=== PATIENT | male | born 1950 ===

== ENCOUNTER 2016-08-22 06:56 | Day surgery (SDC) | payer BC ==
[2016-08-12 13:36] VITALS: BMI 25.3
[2016-08-22] MEDS ORDERED: Lidocaine 2% Inj (20ml) ONE (07:33)
[2016-08-22] MEDS ORDERED: Iodixanol 320 MG/ML 200 ML BOTTLE IV ONE (07:34)
[2016-08-22 07:35] LABS: ADD MANUAL DIFF? NO
[2016-08-22 07:42] LABS: BASO # 0.02 K/mm3 (0.0-2.0); BASO % 0.5 % (0.0-3.0); EOS # 0.1 (0.0-0.7); EOS % 2.4 % (1.5-5.0); GRAN # 2.44 (1.4-6.5); GRAN % 59.3 % (50.0-68.0); HEMATOCRIT 42.5 % (42.0-52.0); MEAN CELL VOLUME 98.4 fL (80.0-105.0); MEAN CORPUSCULAR HEMOGLOBIN 35.2 pg (25.0-35.0); MEAN CORPUSCULAR HGB CONC 35.8 g/dl (31.0-37.0); MEAN PLATELET VOLUME 10.5 fl (7.0-11.0); MONO # 0.6 (0.1-0.6); MONO % 13.8 % (1.0-6.0); PLATELET COUNT 146 10^3/uL (120.0-450.0); RED CELL DISTRIBUTION WIDTH 12.2 % (11.5-14.5); WHITE BLOOD COUNT 4.1 10^3/ul (4.5-11.0)
[2016-08-22 07:46] LABS: BLOOD UREA NITROGEN 14 mg/dL (7-21); CALCIUM 9.6 mg/dL (8.4-10.5); CARBON DIOXIDE 27 mmol/L (21-33); CHLORIDE 98 mmol/L (95-110); GFR AFRICAN-AMERICAN > 60; GLUCOSE,RANDOM 181 mg/dL (70-110); POTASSIUM 3.8 mmol/L (3.6-5.0); SODIUM 137 mmol/L (132-148)
[2016-08-22 07:49] LABS: INR 0.98 (0.93-1.08)
[2016-08-22] MEDS ORDERED: Midazolam 2 MG/2 ML VIAL ONE ×2 (08:40→09:06)
[2016-08-22] MEDS ORDERED: Iodixanol 320 MG/ML 100 ML BOTTLE IV ONE (08:42)
[2016-08-22 09:29] VITALS: O2SAT 99
[2016-08-22] MEDS ORDERED: Sodium Chloride 0.9% 1,000 ML IV SCH (10:15)
--- NOTE | 2016-08-22 10:45 | CARDCATH ---
PROCEDURE DATE: 08/22/2016 HISTORY OF PRESENT ILLNESS: The patient is a 66-year-old male who presents with angina. His cardiac risk factors include hypertension, hypercholesterolemia and diabetes mellitus. Because of his abnormal stress test, cardiac catheterization was recommended. PROCEDURES: Left heart catheterization with coronary angiography, left ventriculogram followed by pe rcutaneous transluminal coronary angioplasty and stent of an right coronary artery with a drug-elutin g stent. The right femoral artery was cannulated with a 6-Telugu sheath. There were no complications. The findings on catheterization revealed a left main artery that was unremarkable. The LAD and diagonal vessels revealed mild intimal irregularities without critical lesions. The circumflex artery and obtuse marginal branches were free of significant disease. The RCA was a dominant vessel and revealed a 99% stenosis in the proximal portion. This was improved with IC nitroglycerin. However, repeat coronary angiography revealed recurrent spasm during the pro cedure. LV function revealed normal LV function with an EF 70%. The patient was started on intravenous Angiomax. Under fluoroscopic guide, the guiding catheter was placed in the ostium of the RCA. An 0.014 ATW wir e was used to cross the lesion. A 3.0 x 18 mm drug-eluting stent was placed and deployed at 16 atmospheres of pressure. Post-dilatat ion was performed with a 4.0 noncompliant balloon at 12 atmospheres of pressure. Repeat coronary ang iography revealed an excellent result with no residual stenosis and LISANDRA III flow. Angio-Seal was used to close the femoral artery site. The patient tolerated the procedure well. IN SUMMARY: The procedure was successful percutaneous transluminal coronary angioplasty and stent of an right coronary artery lesion with a drug-eluting stent. Cardiac catheterization reveals single vessel coronary artery disease of the right coronary artery wh ich was combined atherosclerosis and coronary spasm. Given these findings, the patient will need to remain on aspirin indefinitely and Plavix for at least 1 year and undergo a strict cardiac risk reduction program. Ten Miller MD cc: [facility] TT: 08/22/2016 10:44:38 fl
[2016-08-22 13:51] LABS: CHOLESTEROL 234 mg/dL (130-200)
--- NOTE | 2016-08-22 18:20 | CP.PCM.HP ---
History of Present Illness - History of Present Illness History of Present Illness: Internal Medicine H&P for Dr. Wyatt/Dr. Wang service CC: S/p cardiac cath due to angina with abnormal stress test HPI: This is a 57 yo M with PMH of HTN, HLD, DM, and Gout who presents s/p cardiac cath notable for 99% stenosis in Right RCA with residual spasm s/p IC nitroglycerin requiring placement of a drug-eluting stent. HPI and ROS somewhat limited as patient is poor historian; has poor insight into his conditions. Patient denies any preceding symptoms leading to this point, but as per documentation from Cardio, the patient presented to them with anginal symptoms, and stress testing was abnormal, so patient was scheduled for the cardiac cath today. At time of exam, patient is not complaining of any symptoms. He states pain in right groin is completely resolved. He denies vice -like pressure in the right groin/leg or sensation of lightheadedness/dizziness/ near-syncope. He admits to his history of HTN (diagnosed 1 year prior per patient) and hyperlipidemia (which he states he controls with fenofibrate and diet modification), but states that while he has been told he has Diabetes he does not believe it as he does not feel like he has diabetes (but states compliance with his Metformin). PMH: HTN, HLD, DM, Gout (1 attack prior, none since started on allopurinol) PSH: Denies FHx: Denies SHx: Denies tobacco/illicits/IVDA, admits to 2-3 glasses of alcohol (usually wine) per night, denies shakes or withdrawal sx when not drinking alcohol Works as transported for [employer] PMD: Dr. Patiño Present on Admission - Present on Admission Any Indicators Present on Admission: No History of DVT/PE: No Urinary Catheter: No Review of Systems - Constitutional Constitutional: absent: Chills, Fever, Weakness - EENT Eyes: absent: Blurred Vision, Change in Vision, Loss of Vision Ears: absent: Disequilibrium, Dizziness Nose/Mouth/Throat: absent: Sore Throat, Neck Pain - Cardiovascular Cardiovascular: absent: Chest Pain, Dyspnea, Irregular Heart Rhythm, Pain Radiating to Arm/Neck/Jaw, Lightheadedness, Palpitations, Syncope - Respiratory Respiratory: absent: Cough, Dyspnea, Hemoptysis, Dyspnea on Exertion - Gastrointestinal Gastrointestinal: absent: Abdominal Pain, Constipation, Diarrhea, Nausea, Vomiting - Genitourinary Genitourinary: absent: Difficulty Urinating, Dysuria, Flank Pain, Hematuria - Musculoskeletal Musculoskeletal: absent: Back Pain, Neck Pain, Numbness - Integumentary Integumentary: absent: Pruritus, Rash - Neurological Neurological: absent: Abnormal Gait, Disequilibrium, Dizziness, Numbness, Focal Weakness, Loss of Vision, Paresthesias, Syncope, Tingling, Tremor (generally or off of alcohol), Vertigo, Weakness - Psychiatric Psychiatric: absent: Anxiety - Endocrine Endocrine: absent: Fatigue, Palpitations Past Patient History - CARDIAC Hx Pacemaker: No - NEUROLOGICAL Hx Paralysis: No - HEMATOLOGICAL/ONCOLOGICAL Hx Blood Transfusions: No - MUSCULOSKELETAL/RHEUMATOLOGICAL Hx Musculoskeletal Disorders: No - PSYCHIATRIC Hx Emotional Abuse: No Hx Physical Abuse: No Hx Substance Use: No - SURGICAL HISTORY Hx Surgeries: Yes - ANESTHESIA Hx Anesthesia Reactions: No Hx Malignant Hyperthermia: No Meds Allergies/Adverse Reactions: Allergies Allergy/AdvReac Type Severity Reaction Status Date / Time No Known Allergies Allergy Verified 08/12/16 13:34 Physical Exam - Constitutional Appears: Well, Non-toxic, No Acute Distress - Head Exam Head Exam: ATRAUMATIC, NORMAL INSPECTION, NORMOCEPHALIC - Eye Exam Eye Exam: EOMI, Normal appearance. absent: Conjunctival injection, Scleral icterus Pupil Exam: absent: Irregular, Unequal - ENT Exam ENT Exam: Mucous Membranes Moist - Neck Exam Neck exam: Positive for: Full Rom. Negative for: Tenderness - Respiratory Exam Respiratory Exam: Clear to Auscultation Bilateral, NORMAL BREATHING PATTERN. absent: Accessory Muscle Use, Chest Wall Tenderness, Decreased Breath Sounds, Rales, Rhonchi, Wheezes - Cardiovascular Exam Cardiovascular Exam: REGULAR RHYTHM, RRR, +S1, +S2. absent: Bradycardia, Tachycardia, Irregular Rhythm, +S4 - GI/Abdominal Exam GI & Abdominal Exam: Normal Bowel Sounds, Soft. absent: Diminished Bowel Sounds , Hyperactive Bowel Sounds, Hypoactive Bowel Sounds, Tenderness - Rectal Exam Rectal Exam: Deferred - Extremities Exam Extremities exam: Positive for: normal capillary refill, pedal pulses present (+ 1 dorsalis pedis and radials bilaterally). Negative for: calf tenderness, pedal edema, tenderness Additional comments: Pressure bandaging over R groin canulation site, no surrounding edema/erythema/ tenderness to palpation, patient denies tenderness to palpation at site of bandaging, no active bleeding or oozing at bandaging site - Back Exam Back exam: absent: CVA tenderness (L), CVA tenderness (R) - Neurological Exam Neurological exam: Alert Additional comments: Awake and alert, following all commands appropriately, ROM in bilateral UE and LLE intact and appropriate, RLE ROM restricted 2/2 recent cath - Psychiatric Exam Psychiatric exam: Normal Affect, Normal Mood - Skin Skin Exam: Dry, Intact (except for canulation site as noted in extremities exam) , Normal Color, Warm Results - Vital Signs Recent Vital Signs: Last Vital Signs Temp 97.8 F 08/22/16 12:03 Pulse 73 08/22/16 12:03 Resp 19 08/22/16 12:03 BP 118/71 08/22/16 12:03 Pulse Ox 99 08/22/16 07:10 - Labs Result Diagrams: 08/22/16 07:15 08/22/16 07:15 Labs: Laboratory Results - last 24 hr 08/22/16 08/22/16 08/22/16 07:15 07:15 07:15 WBC 4.1 L RBC 4.32 Hgb 15.2 Hct 42.5 MCV 98.4 MCH 35.2 H MCHC 35.8 RDW 12.2 Plt Count 146 MPV 10.5 Gran % 59.3 Lymph % (Auto) 24.0 [place] % (Auto) 13.8 H Eos % (Auto) 2.4 Baso % (Auto) 0.5 Gran # 2.44 Lymph # 1.0 L [place] # 0.6 Eos # 0.1 Baso # 0.02 PT 10.6 INR 0.98 APTT 25.0 Sodium 137 Potassium 3.8 Chloride 98 Carbon Dioxide 27 Anion Gap 16 BUN 14 Creatinine 1.0 Est GFR ( Amer) > 60 Est GFR (Non-Af Amer) > 60 Random Glucose 181 H Hemoglobin A1c Calcium 9.6 Triglycerides Cholesterol LDL Cholesterol Direct HDL Cholesterol Blood Type Blood Type Confirm Antibody Screen BBK History Checked 08/22/16 08/22/16 08/22/16 07:15 07:30 07:30 WBC RBC Hgb Hct MCV MCH MCHC RDW Plt Count MPV Gran % Lymph % (Auto) [place] % (Auto) Eos % (Auto) Baso % (Auto) Gran # Lymph # [place] # Eos # Baso # PT INR APTT Sodium Potassium Chloride Carbon Dioxide Anion Gap BUN Creatinine Est GFR ( Amer) Est GFR (Non-Af Amer) Random Glucose Hemoglobin A1c 7.3 H Calcium Triglycerides 322 H Cholesterol 234 H LDL Cholesterol Direct 123 HDL Cholesterol 78 H Blood Type O POSITIVE Blood Type Confirm Antibody Screen Negative BBK History Checked No verified bt 08/22/16 07:47 WBC RBC Hgb Hct MCV MCH MCHC RDW Plt Count MPV Gran % Lymph % (Auto) [place] % (Auto) Eos % (Auto) Baso % (Auto) Gran # Lymph # [place] # Eos # Baso # PT INR APTT Sodium Potassium Chloride Carbon Dioxide Anion Gap BUN Creatinine Est GFR ( Amer) Est GFR (Non-Af Amer) Random Glucose Hemoglobin A1c Calcium Triglycerides Cholesterol LDL Cholesterol Direct HDL Cholesterol Blood Type Blood Type Confirm O POSITIVE Antibody Screen BBK History Checked Assessment & Plan - Assessment and Plan (Free Text) Assessment: This is a 57 yo M with PMH of HTN, HLD, DM, and Gout who presents s/p cardiac cath notable for 99% stenosis in Right RCA with residual spasm s/p IC nitroglycerin requiring placement of a drug-eluting stent. He is being kept overnight for observation s/p cardiac cath. Plan: 1) Angina with abnormal stress test -S/p cardiac cath, 99% RCA stenosis requiring CHANTALE placement -Pre-procedure EKG notable for Normal sinus rhythm at 76, Inferior infarct (age undetermined), Abnormal ECG; f/u repeat EKG in AM -RLE limb alert s/p cath, continue pulse checks as per Cardio -Cardio (Dr. Miller) consulted, appreciate all recs; ASA, Plavix, and Statin as per Cardio, will need to remain on ASA indefinitely and plavix for at least 1 year -Lipid panel, A1c, TSH ordered, f/u -Cr 1.0 on AM labs, f/u tomorrow AM Cr 2) DM -holding metformin given recent cardiac cath -ISS-low with Fingerstick ACHS -A1c ordered, f/u 3) HTN -continue home Losartan 4) HLD -started on Statin as per Cardio -Lipid panel ordered, f/u 5) Hx gout -no acute symptoms indicative of gout currently -continue home allopurinol Dispo: Telemetry s/p Cardiac cath for obs FEN: Consistent carb heart-healthy diet Access: Peripheral IV Consults: Cardio Ppx: Protonix for GI, SCDs for DVT (avoid AC given recent cath) Patient reviewed and discussed with attending, Dr. Wyatt.
[2016-08-22] MEDS: Insulin Reg-LOW-Coverage SC SCH (22:19)
[2016-08-23 00:32] VITALS: RESP 18
[2016-08-23 06:19] VITALS: BP 131/71; TEMP 98.5
[2016-08-23 07:05] LABS: ADD MANUAL DIFF? NO
[2016-08-23 07:15] LABS: BASO # 0.02 K/mm3 (0.0-2.0); BASO % 0.6 % (0.0-3.0); EOS # 0.1 (0.0-0.7); GRAN # 2.25 (1.4-6.5); LYMPH # 0.7 (1.2-3.4); LYMPH % 19.4 % (22.0-35.0); MEAN PLATELET VOLUME 10.4 fl (7.0-11.0); MONO # 0.4 (0.1-0.6); PLATELET COUNT 117 10^3/uL (120.0-450.0); RED CELL DISTRIBUTION WIDTH 12.3 % (11.5-14.5); WHITE BLOOD COUNT 3.5 10^3/ul (4.5-11.0)
[2016-08-23 07:43] LABS: HEMATOCRIT 39.4 % (42.0-52.0)
[2016-08-23] MEDS: Insulin Reg-LOW-Coverage SC SCH (08:21)
[2016-08-23 09:38] LABS: BLOOD UREA NITROGEN 12 mg/dL (7-21); CALCIUM 9.3 mg/dL (8.4-10.5); CARBON DIOXIDE 26 mmol/L (21-33); CHLORIDE 103 mmol/L (95-110); GFR AFRICAN-AMERICAN > 60; GLUCOSE,RANDOM 187 mg/dL (70-110); MAGNESIUM 2.4 mg/dL (1.7-2.2); PHOSPHOROUS 3.3 mg/dL (2.5-4.5); POTASSIUM 4.5 mmol/L (3.6-5.0); SODIUM 135 mmol/L (132-148)
[2016-08-23 10:53] LABS: BLOOD UREA NITROGEN 14 mg/dL (7-21); CALCIUM 9.7 mg/dL (8.4-10.5); CARBON DIOXIDE 23 mmol/L (21-33); CHLORIDE 99 mmol/L (98-107); GFR AFRICAN-AMERICAN > 60; GLUCOSE,RANDOM 174 mg/dL (70-110); MAGNESIUM 2.2 mg/dL (1.7-2.2); PHOSPHOROUS 3.3 mg/dL (2.5-4.5); POTASSIUM 4.2 mmol/L (3.6-5.0); SODIUM 137 mmol/L (132-148)
--- NOTE | 2016-08-23 12:56 | PN ---
DATE: 08/23/2016 The patient is asymptomatic after PTCA and stent. PHYSICAL EXAMINATION: VITAL SIGNS: Reveal blood pressure 131/71, the heart rate is in the 70s. NECK: Negative JVD. LUNGS: Without rales. HEART: Reveals S1, S2. EXTREMITIES: Without edema. The right groin site is stable. LABORATORIES: Hemoglobin is 13.4. Glucose is 187. IMPRESSION: 1. Status post percutaneous transluminal coronary angioplasty and stent of a critically stenosed rig ht coronary artery. 2. Chronic obstructive pulmonary disease. 3. Diabetes mellitus. 4. Hypercholesterolemia. Given these findings, the patient is stable for discharge. He will need to remain on aspirin indefin itely and Plavix. Followup and instructions have been given to the patient. Ten Miller MD cc: [id number] TT: 08/23/2016 12:55:36 Confirmation # [id number] Dictation # [id number]
--- NOTE | 2016-08-23 13:26 | CP.PCM.DIS ---
Provider - Provider Date of Admission: 08/22/16 Attending physician: Trino Wyatt MD Primary care physician: Jeff Patiño DO Consults: Reginald: Paul Time Spent in preparation of Discharge (in minutes): 35 Diagnosis - Discharge Diagnosis (1) S/P cardiac catheterization Status: Acute Priority: High (2) S/P right coronary artery (RCA) stent placement Status: Acute Priority: High (3) HLD (hyperlipidemia) Status: Chronic Priority: High Comment: Tg 322, Chol 234, LDL 123. HDL 78 (4) Diabetes Status: Chronic Priority: Medium Comment: A1c this admission 7.3 (5) HTN (hypertension) Status: Chronic Priority: Medium (6) History of gout Status: Chronic Comment: Hx gout, no flairs since on allopurinol regimen Hospital Course - Lab Results Lab Results: Most Recent Lab Values WBC 3.5 10^3/ul (4.5-11.0) L 08/23/16 07:00 RBC 3.94 10^6/uL (3.5-6.1) 08/23/16 07:00 Hgb 13.4 gm/dL (14.0-18.0) L 08/23/16 07:00 Hct 39.4 % (42.0-52.0) L 08/23/16 07:00 MCV 100.0 fL (80.0-105.0) 08/23/16 07:00 MCH 34.0 pg (25.0-35.0) 08/23/16 07:00 MCHC 34.0 g/dl (31.0-37.0) 08/23/16 07:00 RDW 12.3 % (11.5-14.5) 08/23/16 07:00 Plt Count 117 10^3/uL (120.0-450.0) L 08/23/16 07:00 MPV 10.4 fl (7.0-11.0) 08/23/16 07:00 Gran % 64.0 % (50.0-68.0) 08/23/16 07:00 Lymph % (Auto) 19.4 % (22.0-35.0) L 08/23/16 07:00 [place] % (Auto) 12.0 % (1.0-6.0) H 08/23/16 07:00 Eos % (Auto) 4.0 % (1.5-5.0) 08/23/16 07:00 Baso % (Auto) 0.6 % (0.0-3.0) 08/23/16 07:00 Gran # 2.25 (1.4-6.5) 08/23/16 07:00 Lymph # 0.7 (1.2-3.4) L 08/23/16 07:00 [place] # 0.4 (0.1-0.6) 08/23/16 07:00 Eos # 0.1 (0.0-0.7) 08/23/16 07:00 Baso # 0.02 K/mm3 (0.0-2.0) 08/23/16 07:00 PT 10.6 Seconds (9.9-11.8) 08/22/16 07:15 INR 0.98 (0.93-1.08) 08/22/16 07:15 APTT 25.0 Seconds (23.7-30.8) 08/22/16 07:15 Sodium 135 mmol/L (132-148) 08/23/16 07:30 Potassium 4.5 mmol/L (3.6-5.0) 08/23/16 07:30 Chloride 103 mmol/L (95-110) 08/23/16 07:30 Carbon Dioxide 26 mmol/L (21-33) 08/23/16 07:30 Anion Gap 11 (10-20) 08/23/16 07:30 BUN 12 mg/dL (7-21) 08/23/16 07:30 Creatinine 1.0 mg/dL (0.5-1.4) 08/23/16 07:30 Est GFR ( Amer) > 60 08/23/16 07:30 Est GFR (Non-Af Amer) > 60 08/23/16 07:30 POC Glucose (mg/dL) 212 mg/dL (65-110) H 08/23/16 07:57 Random Glucose 187 mg/dL (70-110) H 08/23/16 07:30 Hemoglobin A1c 7.3 % (4.2-6.5) H 08/22/16 07:30 Calcium 9.3 mg/dL (8.4-10.5) 08/23/16 07:30 Phosphorus 3.3 mg/dL (2.5-4.5) 08/23/16 07:30 Magnesium 2.4 mg/dL (1.7-2.2) H 08/23/16 07:30 Triglycerides 322 mg/dL (35-160) H 08/22/16 07:30 Cholesterol 234 mg/dL (130-200) H 08/22/16 07:30 LDL Cholesterol Direct 123 mg/dL (0-129) 08/22/16 07:30 HDL Cholesterol 78 mg/dL (29-60) H 08/22/16 07:30 TSH 3rd Generation 2.02 mIU/mL (0.46-4.68) 08/23/16 07:00 Blood Type O POSITIVE 08/22/16 07:15 Blood Type Confirm O POSITIVE 08/22/16 07:47 Antibody Screen Negative 08/22/16 07:15 BBK History Checked No verified bt 08/22/16 07:15 - Hospital Course Hospital Course: This is a 66 yo M with PMH of HTN, HLD, DM, and gout who presented for scheduled cardiac cath after episodes of angina and an abnormal cardiac stress test. During cath, he was found to have a 99% stenosis of his RCA requiring stenting with a drug-eluting stent. The patient was then admitted to the telemetry floor post-cath for overnight observation. While here, patient was also followed by Cardiology. As per Cardio, patient will need to be on aspirin 81mg PO indefinitely, Plavix 75mg PO daily for at least 1 year, and on a strict cardiac risk reduction program. He was also started on a Statin for his hyperlipidemia, and given education regarding reducing dietary carbohydrates and fat intake. His A1c was obtained while inpatient (7.3) and it was reinforced to patient that he was definitely a diabetic, and stress compliance with his medication regimen. He was instructed to follow up with his PCP within 1 week of discharge and with Cardiology as instructed by the Cardio team. However, prior to final discharge instructions and a final review of his medications by the primary team, the patient, who knew he was being discharged, became impatient and decided to leave. As per nursing, he left with the scripts written for him by the Cardio team. Patient was called on the home phone number provided on admission, and a voicemail was left for him instructing him not to take his Metformin for 3 days (to be resumed on 08/26/16) , due to his recent cath and the risk of renal injury associated with concurrent metformin use in the setting of recent IV contrast dye exposure. Patient will be reached out to by phone by medical staff again throughout the day to confirm these instructions and his understanding of them. Patient seen, examined, and discussed with attending, Dr. Wyatt. Discharge Exam - Additional Findings Additional findings: - Constitutional Appears: Well, Non-toxic, No Acute Distress - Head Exam Head Exam: ATRAUMATIC, NORMAL INSPECTION, NORMOCEPHALIC - Eye Exam Eye Exam: EOMI, Normal appearance. absent: Conjunctival injection, Scleral icterus Pupil Exam: absent: Irregular, Unequal - ENT Exam ENT Exam: Mucous Membranes Moist - Neck Exam Neck exam: Positive for: Full Rom. Negative for: Tenderness - Respiratory Exam Respiratory Exam: Clear to Auscultation Bilateral, NORMAL BREATHING PATTERN. absent: Accessory Muscle Use, Chest Wall Tenderness, Decreased Breath Sounds, Rales, Rhonchi, Wheezes - Cardiovascular Exam Cardiovascular Exam: REGULAR RHYTHM, RRR, +S1, +S2. absent: Bradycardia, Tachycardia, Irregular Rhythm, +S4 - GI/Abdominal Exam GI & Abdominal Exam: Normal Bowel Sounds, Soft. absent: Diminished Bowel Sounds , Hyperactive Bowel Sounds, Hypoactive Bowel Sounds, Tenderness - Extremities Exam Extremities exam: Positive for: normal capillary refill, pedal pulses present (+ 1 dorsalis pedis and radials bilaterally). Negative for: calf tenderness, pedal edema, tenderness Additional comments: Pressure bandaging over R groin canulation site removed, no surrounding edema/ erythema/tenderness to palpation or at healing puncture site, no active bleeding or oozing at canulation site - Back Exam Back exam: absent: CVA tenderness (L), CVA tenderness (R) - Neurological Exam Awake and alert, following all commands appropriately, moving all extremities independently and appropriately - Psychiatric Exam Psychiatric exam: Normal Affect, Normal Mood - Skin Skin Exam: Dry, Intact, Normal Color, Warm Discharge Plan - Discharge Medications Prescriptions: Allopurinol [Zyloprim] 300 mg PO DAILY #30 Atorvastatin [Lipitor] 40 mg PO DAILY #30 tab Clopidogrel [Plavix] 75 mg PO DAILY #30 Losartan [Cozaar] 50 mg PO DAILY #30 - Follow Up Plan Condition: GOOD Disposition: HOME/ ROUTINE Instructions: Metformin (By mouth), Angina (DC), Low Fat Diet (DC), Heart Healthy Diet (DC), Gout (DC), Diabetes Mellitus Type 2 in Adults (DC), Carotid Artery Stent Insertion (DC), Chronic Hypertension (DC), Low Sodium Diet (DC), Hyperlipidemia (DC), Heart Catheterization (DC), Coronary Intravascular Stent Placement (DC) Additional Instructions: Do NOT take Metformin for 3 days after discharge (including today). You can resume your metformin on 08/26/16. Please fill and take all prescriptions as instructed. Please follow up with your PMD within 1 week. Please follow up with Dr. Miller (Cardiology) as instructed. Referrals: Jeff Patiño DO [Primary Care Provider] -
[2016-08-23 15:43] VITALS: PULSE 80
--- NOTE | 2016-08-23 17:32 | CARD ---
APPROVED REPORT EKG Measurement Heart [id number] <Conclusion> Normal sinus rhythm
--- NOTE | 2016-08-23 17:58 | CARD ---
APPROVED REPORT EKG Measurement Heart [id number] <Conclusion> Normal sinus rhythm Inferior infarct, age undetermined Abnormal ECG
== END 2016-08-23 12:10 | disposition home or self-care (01) ==
LOC: CATH 06:56 → UNDOADMIN 10:04 → 2RSO 10:04 → CATH 08-23 12:10
PROVIDERS: ATTEND Internal Medicine
DX: I25.111 Atherosclerotic heart disease of native coronary artery with angina pectoris with documented spasm (principal); R94.39 Abnormal result of other cardiovascular function study; I10 Essential (primary) hypertension; E78.5 Hyperlipidemia, unspecified; E11.9 Type 2 diabetes mellitus without complications; M10.9 Gout, unspecified; I25.2 Old myocardial infarction; E78.00 Pure hypercholesterolemia, unspecified; J44.9 Chronic obstructive pulmonary disease, unspecified
CPT/HCPCS: 36415; 80048 ×2; 80061; 82948 ×2; 83036; 83735 ×2; 84100 ×2; 84443; 85025 ×2; 85610; 85730; 86850; 86900; 93005 ×2; 93458; 99152; 99153; C1725; C1760; C1769 ×2; C1874; C1887; C2629; C9600; J0583; J1644; J2250; J3010; J7030; J7040

== ENCOUNTER 2017-09-20 06:26 | Day surgery (SDC) | payer BC ==
[2017-09-18 15:18] VITALS: BMI 25.0
[2017-09-20 07:13] LABS: BLOOD UREA NITROGEN 12 mg/dL (7-21); CALCIUM 8.9 mg/dL (8.4-10.5); GFR AFRICAN-AMERICAN > 60; GFR NON-AFRICAN AMERICAN > 60
[2017-09-20] MEDS ORDERED: Lidocaine 2 GM Vial 2 GM/50 ML VIAL IV ONE (07:31)
[2017-09-20] MEDS ORDERED: Phenylephrine 10 mg/ml Inj ONE (07:31)
[2017-09-20] MEDS ORDERED: Iodixanol 320 MG/ML 200 ML BOTTLE IV ONE (07:32)
[2017-09-20] MEDS ORDERED: Iohexol 350mgl/ml 50 ML ONE (07:32)
[2017-09-20] MEDS ORDERED: Iodixanol 320 MG/ML 100 ML BOTTLE IV ONE (07:32)
[2017-09-20] MEDS ORDERED: Nitroglycerin 50mg in D5W 50 MG/250 ML BOTTLE IV ONE (07:32)
[2017-09-20 07:41] LABS: INR 1.14 (0.93-1.08); PARTIAL THROMBOPLASTIN TIME 33.1 Seconds (25.1-36.5); PROTHROMBIN TIME 13.2 SECONDS (9.4-12.5)
[2017-09-20 07:47] LABS: BASO # 0.02 K/mm3 (0.0-2.0); BASO % 0.8 % (0.0-3.0); EOS # 0.1 (0.0-0.7); EOS % 4.5 % (1.5-5.0); GRAN # 1.45 (1.4-6.5); GRAN % 54.7 % (50.0-68.0); HEMOGLOBIN 13.2 g/dL (14.0-18.0); LYMPH # 0.7 (1.2-3.4); LYMPH % 24.5 % (22.0-35.0); MEAN CORPUSCULAR HEMOGLOBIN 36.6 pg (25.0-35.0); MEAN CORPUSCULAR HGB CONC 35.5 g/dl (31.0-37.0); MEAN PLATELET VOLUME 10.7 fl (7.0-11.0); MONO # 0.4 (0.1-0.6); MONO % 15.5 % (1.0-6.0); RBC 3.61 10^6/uL (3.5-6.1); RED CELL DISTRIBUTION WIDTH 12.5 % (11.5-14.5)
[2017-09-20 07:52] LABS: WHITE BLOOD COUNT 2.7 10^3/ul (4.5-11.0)
[2017-09-20] MEDS ORDERED: Midazolam 2 MG/2 ML VIAL ONE ×2 (08:05→08:15)
[2017-09-20] MEDS ORDERED: Sodium Chloride 0.9% 1,000 ML IV SCH (09:00)
--- NOTE | 2017-09-20 09:17 | CARD ---
APPROVED REPORT Date of service: 09/20/2017 EKG Measurement Heart [id number] <Conclusion> Normal sinus rhythm Normal ECG
[2017-09-20 10:53] VITALS: RESP 18
[2017-09-20 10:57] VITALS: TEMP 97.8; O2SAT 99
[2017-09-20 11:34] VITALS: PULSE 68
[2017-09-20 11:36] VITALS: BP 157/87
--- NOTE | 2017-09-20 12:54 | CARDCATH ---
PROCEDURE DATE: 09/20/2017 HISTORY: The patient is a 67-year-old man who presents with chest pain. His stress test was abnormal. The patient has diabetes mellitus, hypertension, hypercholesterolemia and previous stents in the past. Because of this, cardiac catheterization was recommended. PROCEDURE: Left heart catheterization with coronary arteriography and left ventriculogram. The right femoral artery was cannulated with 6-Serbian sheath. There were no complications. I performed moderate sedation, which included the presence of an independent trained observer that assisted in monitoring the patient's level of consciousness and physiologic status. After administration of Versed and fentanyl, my intra service time was 15 minutes. Findings on catheterization revealed a left ventricle that contracted normally. Estimated ejection fraction of 70%. The left main artery is unremarkable. Ejection fraction of 70%. His coronary anatomy revealed a right dominant circulation. The RCA revealed diffuse intimal irregularities with a patent stent in the proximal portion. The left main artery was unremarkable. The LAD and diagonal vessels revealed diffuse intimal irregularities without critical lesions. The circumflex artery revealed intimal irregularities throughout its course. OM1 and OM2 revealed 60-70% lesions in its proximal portion. The patient was given 200 mcg of IC nitroglycerin. Repeat coronary arteriography revealed resolution of the lesions in the OM1 and OM2. Angio-Seal was used to close the femoral artery site. The patient tolerated the procedure well. In summary, the procedure revealed: 1. A patent stent in the RCA. 2. A 60-70% lesions in OM1 and OM2. 3. Improvement of the lesions, the non-critical lesions after 200 mcg of IC nitroglycerin. 4. Normal LV function. Given these findings, the patient's treatment will be continued medical therapy. He will need to remain on aspirin and Plavix as well as statin therapy. We will add Lipitor to his regimen. We will consider vasodilators if the patient has continued symptoms. Ten Miller MD
== END 2017-09-20 14:50 | disposition home or self-care (01) ==
LOC: CATH 06:26
PROVIDERS: ATTEND Internal Medicine Cardiovascular Disease
DX: I25.110 Atherosclerotic heart disease of native coronary artery with unstable angina pectoris (principal); E11.9 Type 2 diabetes mellitus without complications; I10 Essential (primary) hypertension; E78.00 Pure hypercholesterolemia, unspecified; E78.5 Hyperlipidemia, unspecified; R94.39 Abnormal result of other cardiovascular function study; Z95.5 Presence of coronary angioplasty implant and graft
CPT/HCPCS: 36415; 80048; 85025; 85610; 85730; 86850; 86900; 93005; 93458; 99152; C1769; C1894; J1644; J2250; J3010; J7030; Q9966; Q9967